=== PATIENT | female | born 1955 | race Caucasian/White ===

== ENCOUNTER 2024-02-27 10:42 | Emergency (ER) | payer OTHER, SELFPAY ==
[2024-02-27 11:12] VITALS: BP 102/70; PULSE 90; RESP 19; TEMP 37.6; O2SAT 95; BMI 50.1
--- NOTE | 2024-02-27 11:16 | XR_ITS ---
Examination: PA lateral chest 2 views TECHNIQUE: Upright PA lateral chest 2 views Exam date and time: July 27, 2024 1125 hours Comparison 10/05/2018 INDICATIONS: Coughing fever 3 days. FINDINGS: Early pneumonia left base Fat pad right cardiophrenic angle Normal heart size IMPRESSION: Early pneumonia left base
--- NOTE | 2024-02-27 11:17 | EDNOTE_ITS ---
Upper Respiratory Inf. RME/HPI General Chief Complaint: Flu Like Symptoms Stated Complaint: COUGH, CONGESTION, M[place]OCHO, BODYACHES Time Seen by Provider: 02/27/24 11:03 Source: patient Arrival date/time: 02/27/24 10:42 68-year-old female with a history of hypothyroidism, hypertension, hyperlipi demia, COPD presents to the emergency room with a chief complaint of cough congestion shortness of breath and bodyaches x 1 day. Mode of arrival: ambulatory Limitations: no limitations Related Data Home Medications ?Medication ?Instructions ?Recorded ?Confirmed levothyroxine 25 mcg tablet 25 mcg PO DAILY ##0 06/23/09 08/13/18 (Synthroid) loratadine 10 mg tablet (Claritin) 10 mg PO DAILY ##0 06/23/09 08/13/18 simvastatin 20 mg tablet 1 tab PO BID ##0 06/23/09 08/13/18 clonazepam 0.5 mg tablet (Klonopin) 0.5 mg PO BID #0 tabs 01/12/16 08/13/18 metoclopramide HCl 5 mg tablet 5 mg PO QDAY #0 tabs 01/12/16 08/13/18 (Reglan) tramadol 50 mg tablet (Ultram) 50 mg PO QID PRN PAIN #2 tabs 01/12/16 08/13/18 gabapentin 300 mg capsule 1 mg PO HS #0 mg 02/18/17 08/13/18 (Neurontin) lisinopril 20 mg tablet 20 mg PO BID #0 tabs 02/18/17 08/13/18 omeprazole 20 mg capsule,delayed 20 mg PO QDAY ##0 02/18/17 08/13/18 release Previous Rx's ?Medication ?Instructions ?Recorded ibuprofen 600 mg tablet 600 mg PO Q6HR PRN PAIN #40 tabs 05/12/15 amoxicillin 875 mg-potassium 1 tab PO BID 7 days #14 tabs 02/27/24 clavulanate 125 mg tablet Allergies Allergy/AdvReac Type Severity Reaction Status Date / Time erythromycin base Allergy Intermediate Abdominal Verified 08/13/18 13:50 Pain Review of Systems Review of Systems Systems Reviewed: All systems reviewed, normal except as documented Constitutional Constitutional: Reports system reviewed and no additional complaints, except as documented, Denies fatigue, Denies fever(s), Denies headache(s) and Denies weakness Eyes Eyes: Reports system reviewed and no additional complaints, except as documented, Denies blurry vision and Denies change in vision ENT Ears, Nose, Mouth, and Throat: Reports system reviewed and no additional complaints, except as documented, Denies otalgia, Denies headache(s), Denies nasal congestion, Denies throat swelling and Denies vertigo Cardiovascular Cardiovascular: Reports system reviewed and no additional complaints, except as documented, Denies chest pain, Reports dyspnea and Reports dyspnea on exertion Respiratory Respiratory: Reports system reviewed and no additional complaints, except as documented, Reports chest congestion, Reports cough, Reports dyspnea, Reports dyspnea on exertion and Reports wheezing Gastrointestinal Gastrointestinal: Reports system reviewed and no additional complaints, except as documented, Denies abdominal pain, Denies cramping, Denies nausea and Denies vomiting Genitourinary Genitourinary: Reports system reviewed and no additional complaints, except as documented Musculoskeletal Musculoskeletal: Reports system reviewed and no additional complaints, except as documented and Denies back pain Integumentary/Breasts Skin/Breast: Reports system reviewed and no additional complaints, except as documented and Denies wounds Neurologic Neurologic: Reports system reviewed and no additional complaints, except as documented, Denies confusion, Denies headache(s), Denies lack of coordination, Denies vertigo and Denies weakness Psychiatric Psychiatric: Reports system reviewed and no additional complaints, except as documented, Denies anxiety, Denies confusion, Denies depression, Denies paranoia, Denies suicidal ideation and Denies tactile hallucinations Endocrine Endocrine: Reports system reviewed and no additional complaints, except as documented and Denies fatigue Hematologic/Lymphatic Hematologic/Lymphatic: Reports system reviewed and no additional complaints, except as documented and Denies lymphadenopathy Allergic/Immunologic Allergic/Immunologic: Reports system reviewed and no additional complaints, except as documented, Denies throat swelling, Denies urticaria and Reports wheezing Past Medical History Past Medical History RESPIRATORY: Positive Asthma, Emphysema and Pneumonia; Negative Chronic Obstructive Pulmonary Disease (COPD) or Tuberculosis OTHER HISTORY: Negative Blood Transfusions or Cancer Social History SMOKING STATUS: Never smoker SECOND HAND EXPOSURE: No ED Exam General Limitations: Present no limitations General appearance: Present alert and in no apparent distress Head Head exam: Present atraumatic Eye Eye exam: Present normal appearance, PERRL and EOMI ENT ENT exam: Present normal exam, normal oropharynx and mucous membranes moist Neck Neck exam: Present normal inspection, full ROM and trachea midline Chest Chest inspection: Present normal inspection and symmetric chest wall rise Respiratory Respiratory exam: Present normal lung sounds bilaterally and wheezes Expanded Respiratory Exam Location: Left: wheezes, Right: wheezes, Upper: wheezes and Lower: wheezes Cardiovascular Cardiovascular exam: Present regular rate, normal rhythm and normal heart sounds Abdominal Exam Abdominal exam: Present soft and normal bowel sounds Extremities Exam Extremities exam: Present normal inspection and full ROM Back Exam Back exam: Present normal inspection and full ROM Neurological Exam Neurological exam: Present alert, oriented X3 and CN II-XII intact Psychiatric Psychiatric exam: Present normal affect and normal mood Skin Skin exam: Present warm, dry, intact and normal color Course Quality Measures none Orders Category Date Time Status Bedside COVID-19 Antigen Test NOW Care 02/27/24 11:16 Completed Bedside Influenza A&B Antigen Test NOW Care 02/27/24 11:16 Completed XR chest 2V Stat Exams 02/27/24 11:16 Completed Albuterol/Ipratr Rt Shy [Duoneb Rt Shy] Med 02/27/24 11:16 Discontinued 3 ml INH X1 ONE Dexamethasone Inj [Decadron Inj] Med 02/27/24 11:16 Discontinued 10 mg PO X1 ONE Vital Signs Vital signs: Vital Signs Temperature 99.6 F 02/27/24 11:12 Pulse Rate 90 02/27/24 11:12 Respiratory Rate 19 02/27/24 11:12 Blood Pressure 102/70 02/27/24 11:12 Pulse Oximetry (%) 95 02/27/24 11:12 Oxygen Delivery Method Room Air 02/27/24 11:12 O2 saturation 95% within normal limits Upper Respiratory Infection MDM Narrative MDM Narrative:: 68-year-old female with a history of hypothyroidism, hypertension, hyperlipidemi a, COPD presents to the emergency room with a chief complaint of cough congestion shortness of breath and bodyaches x 1 day. Clinically the patient appears nontoxic and in no apparent distress. Physical examination shows bilateral wheezing to the upper and lower lobes during auscultation. Patient's O2 saturation is currently 96% on room air there is stridor or any respiratory distress. X-ray was completed and shows bilateral pneumonia. COVID-19 and influenza were negative. Patient was given a breathing treatment and reevaluated in 30 minutes with significant improvement to her symptoms. Patient was discharged with antibiotics and educated to follow-up with primary care provider and return to the emergency room for any evidence of worsening signs or symptoms Patient data External records reviewed:: [facility] previous records Clinical information provided by:: patient Social determinants that could affect healthcare access:: none Patient has the following chronic illnesses:: COPD, hypertension, hyperlipidemia, and morbidly obese How is presenting disease/condition affected by chronic disease/condition?: exacerbated by Evaluation data The following diagnostics were reviewed and interpreted by me:: lab results and radiology exam(s) Lab and/or radiology exams considered but not ordered:: Labs and radiology exams considered and ordered Interpretation Summary: Chest [id number]: Early pneumonia left base Fat pad right cardiophrenic angle Normal heart size IMPRESSION: Early pneumonia left base Medications / Prescriptions Medications or Prescriptions considered but not ordered:: Medication given Medication administrations:: Medication Administration History Discontinued Medications Albuterol/Ipratropium (Albuterol/Ipratropium (Duoneb) Rt Shy 3 Ml Nebu) 3 ml INH X1 ONE Stop: 02/27/24 11:17 Last Admin: 02/27/24 11:40 Dose: 3 ml Documented By: BELEN Dexamethasone Sodium Phosphate (Dexamethasone Sod Phos Inj 10 Mg/Ml Vial) 10 mg PO X1 ONE Stop: 02/27/24 11:17 Last Admin: 02/27/24 11:37 Dose: 10 mg Documented By: [facility] Comments: ordered to give oral Medication given Consultations Consultation(s) initiated? (list below): No Diagnosis Upper Respiratory Differential Diagnosis: upper respiratory infection, viral infection, bronchitis, influenza, pharyngitis and other (Community-acquired pneumonia) Most likely diagnosis given after review of the tests above:: Community-acquired pneumonia Admission Indicated Admission indicated?: not indicated Admission Request Was there a request for admission?: No Disposition Plan Disposition Plan: Discharge Discharge Attestation Discharge Attestation: The patient and all family members were given an opportunity to ask questions and understood the discharge instructions. Discharge instructions specifically effects, indications for sooner follow up or return to the emergency department, and the expected course of current diagnosis. Patient condition: Stable Discharge Plan Plan Patient Disposition: HOME (Self Care) Disposition Comment: Stable Prescriptions/Referrals Prescriptions/Med Rec: New amoxicillin-pot clavulanate 875-125 mg tablet 1 tab PO BID 7 Days Qty: 14 0RF No Action levothyroxine [Synthroid] 25 MCG tablet 25 mcg PO DAILY Qty: 0 simvastatin 20 MG tablet 1 tab PO BID Qty: 0 loratadine [Claritin] 10 MG tablet 10 mg PO DAILY Qty: 0 ibuprofen 600 MG tablet 600 mg PO Q6HR PRN (Reason: PAIN) Qty: 40 0RF clonazepam [Klonopin] 0.5 MG tablet 0.5 mg PO BID Qty: 0 tramadol [Ultram] 50 MG tablet 50 mg PO QID PRN (Reason: PAIN) Qty: 2 Patient Comments: FOR PAIN, NOT TO EXCEED 8 TABS IN 24 HRS metoclopramide HCl [Reglan] 5 MG tablet 5 mg PO QDAY Qty: 0 lisinopril 20 MG tablet 20 mg PO BID Qty: 0 gabapentin [Neurontin] 300 MG capsule 1 mg PO HS Qty: 0 omeprazole 20 MG capsule,delayed release(DR/EC) 20 mg PO QDAY Qty: 0 Referrals: Mendy Cao PA-C [Primary Care Provider] - In 1 week Problem List Clinical Impression: Community acquired pneumonia Patient/Caregiver Discharge Instructions Education Materials: ED Pneumonia (Adult) Additional Instructions: Please follow-up with your primary care provider in the next 24 to 48 hours. Chest x-ray was completed and shows some pneumonia. Antibiotics are sent to your pharmacy please pick them up and take them as indicated. For any evidence of worsening signs or symptoms please return to the emergency room immediately Please avoid secondhand smoke. Print Language: Czech Stand Alone Forms: Grace Award Info., Patient Portal Info Letter ALYSHA/JOHN Supervising Physician ALYSHA/JOHN Supervising Physician: Dr Grande
[2024-02-27] MEDS: DEXAMETHASONE SOD PHOS INJ 10 MG/ML VIAL PO (11:37)
[2024-02-27] MEDS: ALBUTEROL/IPRATROPIUM (Duoneb) RT SOL 3 ML NEBU INH (11:40)
[2024-02-27 11:41] VITALS: PULSE 92; RESP 20; O2SAT 98
== END 2024-02-27 11:54 | disposition home or self-care (01) ==
PROVIDERS: Emergency Provider Emergency Medicine; PCP Physician Assistant
DX: J44.0 Chronic obstructive pulmonary disease with (acute) lower respiratory infection (principal); J18.9 Pneumonia, unspecified organism
CPT/HCPCS: 71046; 87400; 87811; 94640; 99283; A9270; J1100

== ENCOUNTER 2024-12-26 16:47 | Emergency (ER) | payer MEDICARE, MEDICAID, SELFPAY ==
[2024-12-26 17:35] VITALS: BP 138/75; PULSE 64; RESP 20; TEMP 36.8; O2SAT 93; BMI 42.5
--- NOTE | 2024-12-26 17:40 | XR_ITS ---
Examination: CT abdomen and pelvis without contrast. Coronal 3-D reconstructions. Sagittal 2-D reconstructions. Date and time of exam: December 26, 2024, 1831 hours COMPARISON: 10/2014 INDICATIONS: Onset left-sided flank pain beginning 1 week ago CTDI: vol (mGy): 13.4 DLP: (mGycm): 736 Technique: Axial images of the abdomen have been obtained, 3 mm slice thickness Intravenous contrast material has not been administered. Low dose protocols were performed. One or more of the following dose reduction techniques were used; automated exposure control, adjustment of the mA and/or KV according to patient size, use of iterative reconstruction technique. Findings: No focal liver or splenic lesions No gallstones No pancreatic or adrenal mass Perinephric stranding No renal or ureteral calculi, no hydronephrosis Aorta normal size 19 mm fat-containing umbilical hernia Normal appendix Colonic diverticulosis, no diverticulitis Atrophic uterus No bladder mass or bladder calculi No pelvic mass Moderate osteopenia IMPRESSION: Bilateral perinephric stranding, consider urinary tract infection No renal or ureteral calculi, no hydronephrosis Moderate bilateral renal scar formation Normal appendix Colonic diverticulosis, no diverticulitis No bladder mass or bladder calculi
--- NOTE | 2024-12-26 17:41 | EDRME_ITS ---
Rapid Medical Screening Exam [facility] Arrival date/time: 12/26/24 16:47 69-year-old female presents to the Emergency Department for complaint of left leg pain ongoing x 2 days Chief Complaint: Back Pain/Injury Vital signs: Vital Signs Temperature 98.2 F 12/26/24 17:35 Pulse Rate 64 12/26/24 17:35 Respiratory Rate 20 12/26/24 17:35 Blood Pressure 138/75 H 12/26/24 17:35 Pulse Oximetry (%) 93 L 12/26/24 17:35 Oxygen Delivery Method Room Air 12/26/24 17:35 Vital signs reviewed by provider: Yes Exam: On exam patient is tenderness to the flank region Clinical Impression: Labs imaging ordered
[2024-12-26 18:05] LABS: Collection Type, Urine Clean Catch
[2024-12-26 18:18] LABS: Basophils # (Auto) 0.1 Thou/mm3 (0.0-0.2); Basophils % (Auto) 1 % (0-2.5); Eosinophils # (Auto) 0.2 Thou/mm3 (0.0-0.5); Eosinophils % (Auto) 3 % (0-10); Hematocrit 37.9 % (36.0-46.0); Hemoglobin 12.3 g/dL (12.0-16.0); Immature Granulocytes Auto 0.05 Thou/mm3 (0.00-0.00); Lymphocytes # (Auto) 2.4 Thou/mm3 (1.0-4.8); Lymphocytes % (Auto) 25 % (10-50); Mean Corpuscular HGB Conc 32.5 g/dl (31.0-37.0); Mean Corpuscular Hemoglobin 27.2 pg (25.0-35.0); Mean Corpuscular Volume 84 fL (80-100); Monocytes # (Auto) 0.4 Thou/mm3 (0.0-0.8); Monocytes % (Auto) 5 % (0-12); Neutrophils # (Auto) 6.3 Thou/mm3 (1.8-7.7); Neutrophils % (Auto) 67 % (37-80); Nucleated Red Blood Cell # 0.00 Thou/mm3 (0.00-0.00); Nucleated Red Blood Cell % 0 /100 WBC (0); Platelet Count 259 Thou/mm3 (140-440); RDW Standard Deviation 42.8 fL (36.4-46.3); Red Blood Count 4.52 Miln/mm3 (4.00-5.20); White Blood Count 9.5 Thou/mm3 (3.6-11.0)
[2024-12-26 18:21] LABS: Amorphous Crystals,Urine Present (Absent); Bacteria,Urine Rare; Bilirubin,Urine Negative (Negative); Blood,Urine Negative (Negative); Clarity,Urine Clear (Clear/Hazy); Color,Urine Yellow (Lt Yel-Yel); Glucose, Urine Negative (Negative); Ketones,Urine Negative (Negative); Leukocyte Esterase,Urine Positive (Negative); Nitrite,Urine Positive (Negative); PH,Urine 6.0 (5.0-7.0); Protein,Urine Negative (Neg - Trace); RBC,Urine 4 /hpf (0-3); Specific Gravity,Urine 1.019 (1.001-1.035); Squamous Epithelial Cell,Urine 6 /hpf (0-5); Urobilinogen,Urine Negative mg/dL (0.0-1.0); WBC,Urine 12 /hpf (0-5)
[2024-12-26 18:22] LABS: Culture Indicated,Urine Yes
[2024-12-26 18:31] LABS: Alanine Aminotransferase 13 U/L (10-49); Albumin, Serum 4.3 gm/dL (3.4-4.8); Albumin/Globulin Ratio 1.4 (1.2-2.2); Alkaline Phosphatase 107 U/L (46-116); Anion Gap 9 (7-16); Aspartate Amino Transferase 21 U/L (0-34); BUN/Creatinine Ratio 10 Ratio (12-20); Bilirubin,Total 0.3 mg/dL (0.3-1.2); Blood Urea Nitrogen 11 mg/dL (9-23); Calcium 9.4 mg/dL (8.3-10.6); Calcium (Corrected) 9.4 mg/dL (8.5-10.1); Carbon Dioxide 28.3 mMol/L (20.0-31.0); Chloride 102 mMol/L (98-107); Creatinine (Component) 1.1 mg/dL (0.6-1.3); Estimated Creatinine Clearance 53.0 mL/min (>60); Globulin 3.0 gm/dL (2.3-3.5); Glucose 86 mg/dL (74-106); Lipase 24 U/L (12-53); Osmolality,Calculated 275 (275-295); Potassium 3.9 mMol/L (3.4-5.1); Sodium 139 mMol/L (136-145); Total Protein 7.3 gm/dL (5.7-8.2); Troponin I < 0.002 ng/mL (0.0-0.045); eGFR 54 See Note
[2024-12-26] MEDS: KETOROLAC INJ 30 MG/ML VIAL IM (19:43)
--- NOTE | 2024-12-26 20:47 | PD.EDBACK ---
ED Back Injury Pain RME/HPI General Chief Complaint: Back Pain/Injury Stated Complaint: L) FLANK PAIN Time Seen by Provider: 12/26/24 20:33 Arrival date/time: 12/26/24 16:47 69-year-old female patient came in for evaluation regarding low back pain. Has been having low back pain for the last 1 week, described as dull ache, severity moderate. Also complaining of dysuria. Denies any fever denies any cough denies any vomiting denies any other complaints no medication was taken prior to ER visit. RME / HPI RME / HPI Narrative: 12/26/24 16:47 69-year-old female presents to the Emergency Department for complaint of left leg pain ongoing x 2 days Exam: On exam patient is tenderness to the flank region Impression: Labs imaging ordered Related Data Home Medications ?Medication ?Instructions ?Recorded ?Confirmed levothyroxine 25 mcg tablet 25 mcg PO DAILY ##0 06/23/09 08/13/18 (Synthroid) loratadine 10 mg tablet (Claritin) 10 mg PO DAILY ##0 06/23/09 08/13/18 simvastatin 20 mg tablet 1 tab PO BID ##0 06/23/09 08/13/18 clonazepam 0.5 mg tablet (Klonopin) 0.5 mg PO BID #0 tabs 01/12/16 08/13/18 metoclopramide HCl 5 mg tablet 5 mg PO QDAY #0 tabs 01/12/16 08/13/18 (Reglan) tramadol 50 mg tablet (Ultram) 50 mg PO QID PRN PAIN #2 tabs 01/12/16 08/13/18 gabapentin 300 mg capsule 1 mg PO HS #0 mg 02/18/17 08/13/18 (Neurontin) lisinopril 20 mg tablet 20 mg PO BID #0 tabs 02/18/17 08/13/18 omeprazole 20 mg capsule,delayed 20 mg PO QDAY ##0 02/18/17 08/13/18 release Previous Rx's ?Medication ?Instructions ?Recorded ibuprofen 600 mg tablet 600 mg PO Q6HR PRN PAIN #40 tabs 05/12/15 cefuroxime axetil 500 mg tablet 500 mg PO BID #14 tabs 12/26/24 ibuprofen 800 mg tablet 800 mg PO Q8H PRN pain #30 tabs 12/26/24 Allergies Allergy/AdvReac Type Severity Reaction Status Date / Time erythromycin base Allergy Intermediate Abdominal Verified 12/26/24 16:49 Pain Review of Systems Review of Systems Narrative Review of Systems: Review of system reviewed and within normal limits except mentioned in HPI ED Exam Narrative Physical exam: VITAL SIGNS: Reviewed. GENERAL APPEARANCE: Alert and interactive, follows commands, no acute distress, HEAD AND FACE: Non-traumatic. ENT: PERRL, pink conjunctivitis, eyelid no trauma, Mucous membrane moist. NECK: Supple, nontender, no nuchal rigidity. CHEST: No tenderness, no crepitus, no paradoxical movement, no retractions. LUNGS: Clear, well ventilated, symmetric, no rales, no wheezing, no ronchi, no stridor, good breath sounds bilaterally. HEART: Regular rate, regular rhythm, no murmur, no gallops. ABDOMEN: Soft, positive bowel sounds, nondistended, no guarding, nontender, no rebound, no masses, RECTAL: Deferred. GENITAL: Deferred. NEUROLOGICAL: Gross motor function intact sensory function intact, Appropriate for age. MUSCULOSKELETAL: low back tenderness, full range of motion. EXTREMITIES: Nontender, full range of motion. SKIN: Color pink, dry, no rash, no lacerations, no abrasions, no contusions. LYMPHATICS: Deferred. Course Quality Measures none Orders Category Date Time Status CT abdomen pelvis wo con Stat Exams 12/26/24 17:40 Completed CBC Stat Lab 12/26/24 18:00 Completed Comprehensive Metabolic Panel Stat Lab 12/26/24 18:00 Completed Lipase Stat Lab 12/26/24 18:00 Completed Troponin I Stat Lab 12/26/24 18:00 Completed UA, C/S IF [Urinalysis, C/S if Indicated] Stat Lab 12/26/24 17:45 Completed Urine Culture Stat Lab 12/26/24 17:45 Received Ketorolac Inj [Toradol Inj] Med 12/26/24 17:40 Discontinued 30 mg IM X1 ONE Lidocaine 1% 20 ml [Xylocaine 1% 20 ML] Med 12/26/24 20:45 Once 2 ml INFL X1 ONE cefTRIAXone [Rocephin] 1,000 mg Med 12/26/24 20:46 Discontinued Lidocaine 1% 20 ml [Xylocaine 1% 20 ML] 2.1 ml IM X1 Vital Signs Vital signs: Vital Signs Temperature 98.2 F 12/26/24 17:35 Pulse Rate 64 12/26/24 17:35 Respiratory Rate 20 12/26/24 17:35 Blood Pressure 138/75 H 12/26/24 17:35 Pulse Oximetry (%) 93 L 12/26/24 17:35 Oxygen Delivery Method Room Air 12/26/24 17:35 Back Pain / Injury MDM Narrative [facility] Narrative:: 12/26/24 16:47 69-year-old female patient came in for evaluation regarding low back pain. Has been having low back pain for the last 1 week, described as dull ache, severity moderate. Also complaining of dysuria. Denies any fever denies any cough denies any vomiting denies any other complaints no medication was taken prior to ER visit. Patient's workup is significant for UTI, no leukocytosis noted, creatinine is normal rest of the labs unremarkable. CT scan of the abdomen and pelvis showed Bilateral perinephric stranding, consider urinary tract infection No renal or ureteral calculi, no hydronephrosis Moderate bilateral renal scar formation Normal appendix Colonic diverticulosis, no diverticulitis No bladder mass or bladder calculi Patient was given ceftriaxone IM, Toradol IM with significant improvement of symptoms Patient data External records reviewed:: None Clinical information provided by:: patient Social determinants that could affect healthcare access:: none Patient has the following chronic illnesses:: Morbid obesity, hypothyroidism hypertension How is presenting disease/condition affected by chronic disease/condition?: exacerbated by Evaluation data The following diagnostics were reviewed and interpreted by me:: lab results and radiology exam(s) Lab and/or radiology exams considered but not ordered:: None Interpretation Summary: See results [facility] Medications / Prescriptions Medications or Prescriptions considered but not ordered:: None Medication administrations:: Medication Administration History Lidocaine HCl (Lidocaine Hcl 1% 20 Ml Vial) 2 ml INFL X1 ONE Stop: 12/26/24 20:46 Discontinued Medications Ceftriaxone Sodium 1,000 mg/ (Lidocaine HCl 2.1 ml) 0 mg IM X1 ONE Stop: 12/26/24 20:47 Ketorolac Tromethamine (Ketorolac Inj 30 Mg/Ml Vial) 30 mg IM X1 ONE Stop: 12/26/24 17:41 Last Admin: 12/26/24 19:43 Dose: 30 mg Documented By: Ceftriaxone IM, Toradol Consultations Consultation(s) initiated? (list below): No Diagnosis Differential diagnosis back pain/injury: sciatica, pyelonephritis and other (uti) Most likely diagnosis given after review of the tests above:: uti Admission Indicated Admission indicated?: not indicated Admission Request Was there a request for admission?: No Disposition Plan Disposition Plan: Discharge Discharge Attestation Discharge Attestation: The patient and all family members were given an opportunity to ask questions and understood the discharge instructions. Discharge instructions specifically effects, indications for sooner follow up or return to the emergency department, and the expected course of current diagnosis. Patient condition: Stable Discharge Plan Plan Patient Disposition: HOME (Self Care) Discharge Disposition comment: Stable Prescriptions/Referrals Prescriptions/Med Rec: New cefuroxime axetil 500 mg tablet 500 mg PO BID Qty: 14 0RF ibuprofen 800 mg tablet 800 mg PO Q8H PRN (Reason: pain) Qty: 30 0RF No Action levothyroxine [Synthroid] 25 MCG tablet 25 mcg PO DAILY Qty: 0 simvastatin 20 MG tablet 1 tab PO BID Qty: 0 loratadine [Claritin] 10 MG tablet 10 mg PO DAILY Qty: 0 ibuprofen 600 MG tablet 600 mg PO Q6HR PRN (Reason: PAIN) Qty: 40 0RF clonazepam [Klonopin] 0.5 MG tablet 0.5 mg PO BID Qty: 0 tramadol [Ultram] 50 MG tablet 50 mg PO QID PRN (Reason: PAIN) Qty: 2 Patient Comments: FOR PAIN, NOT TO EXCEED 8 TABS IN 24 HRS metoclopramide HCl [Reglan] 5 MG tablet 5 mg PO QDAY Qty: 0 lisinopril 20 MG tablet 20 mg PO BID Qty: 0 gabapentin [Neurontin] 300 MG capsule 1 mg PO HS Qty: 0 omeprazole 20 MG capsule,delayed release(DR/EC) 20 mg PO QDAY Qty: 0 Referrals: Mendy Cao PA-C [Primary Care Provider, Family Practice] - In 1 week Problem List Clinical Impression: UTI (urinary tract infection) Patient/Caregiver Discharge Instructions Discharge Activity: activity as tolerated Education Materials: Understanding Urinary Tract ... Additional Instructions: Thank you for the opportunity for serving you today. You are stable for discharged . You are advised to: Follow-up with your PCP in 1 to 2 days Return to ED for worsening of symptoms Increase oral fluids Take medication as prescribed Print Language: Slovak Stand Alone Forms: [employer] Info., Patient Portal Info Letter
[2024-12-26] MEDS: cefTRIAXone 1,000 MG, LIDOCAINE 1% 20 ML 2.1 ML IM (20:53)
[2024-12-26 21:06] VITALS: BP 116/72; PULSE 72; RESP 16; TEMP 36.8; O2SAT 98
== END 2024-12-26 21:07 | disposition home or self-care (01) ==
PROVIDERS: Emergency Provider Nurse Practitioner Primary Care; PCP Physician Assistant
DX: N39.0 Urinary tract infection, site not specified (principal)
CPT/HCPCS: 36415; 74176; 80053; 81001; 83690; 84484; 85025; 87077; 87086; 87186; 96372; 99283; J0696; J1885; J3490